=== PATIENT | male | born 1995 | race Asian ===

== ENCOUNTER 2020-08-03 21:04 | Emergency (ER) | payer MEDICAID ==
[~2020-08-03] VITALS: Ht 170.2 cm; Wt 81.8 kg
[2020-08-03] MEDS ORDERED: IBUPROFEN 600 MG TABLET PO ONE (22:45)
[2020-08-03] MEDS ORDERED: GuaiFENesin/D-METHORPHAN [SUGAR-FREE] 200-20MG/10 ML SYRUP UDCUP PO ONE (22:45)
[2020-08-03] MEDS ORDERED: ACETAMINOPHEN 500 MG TABLET PO ONE (22:45)
[2020-08-03 23:05] LABS: COVID AG,FIA SOURCE NASOPHARYNGEAL
[2020-08-04 00:20] VITALS: BP 127/71
== END 2020-08-04 00:40 | disposition home or self-care (01) ==
LOC: EMS 21:04
DX: U07.1 COVID-19 (principal); J12.82 Pneumonia due to coronavirus disease 2019; F41.9 Anxiety disorder, unspecified
CPT/HCPCS: 87426; 71045-TC